=== PATIENT | female | born 1950 | race Two or more races ===

== ENCOUNTER → 2019-09-28 | Outpatient (CLI) | payer OTHER, MEDICAID | END | disposition home or self-care (01) | LOC: Rad HDHVI 11:55 | PROVIDERS: ATTEND Internal Medicine Cardiovascular Disease | DX: I65.23 Occlusion and stenosis of bilateral carotid arteries (principal); R94.31 Abnormal electrocardiogram [ECG] [EKG]; R42 Dizziness and giddiness; R00.2 Palpitations | CPT/HCPCS: 93880 ==

== ENCOUNTER → 2019-10-05 | Outpatient (CLI) | payer OTHER, MEDICAID ==
[~2019-10-05] VITALS: Ht 152.4 cm; Wt 58.1 kg
[~2019-10-05] MED LIST: ADENOSINE 49 MG in GIVE UN-DILUTED 0 ML IV ONE; ADENOSINE 90 MG/30 ML INJ IV ONE
== END | disposition home or self-care (01) ==
LOC: Rad HDHVI 08:52
PROVIDERS: ATTEND Internal Medicine Cardiovascular Disease
DX: R42 Dizziness and giddiness (principal); E11.9 Type 2 diabetes mellitus without complications; R55 Syncope and collapse; R94.31 Abnormal electrocardiogram [ECG] [EKG]
CPT/HCPCS: 78452; 93005; 93306; 96374; 96375; A9500; J0153